=== PATIENT | male | born 1985 ===

== ENCOUNTER 2018-11-16 11:52 | Emergency (ER) | payer OTHER ==
[2018-11-16 13:11] VITALS: RESP 16; TEMP 98.7
--- NOTE | 2018-11-16 13:13 | ED PDOC ---
Arrival/HPI - General Time Seen by Provider: 11/16/18 12:33 Historian: Patient - History of Present Illness Narrative History of Present Illness (Text): 11/16/18 13:10 A 33 year old male presents to the emergency department for further evaluation of nausea. Patient notes that the symptoms began 3 days ago overnight after a BBQ. He notes that he is able to tolerate PO. Patient's partner and 2 children with similar symptoms. He denies fevers, chills, headache, dizziness, chest pain, shortness of breath, dyspnea on exertion, cough, abdominal pain, vomiting, diarrhea, back pain, neck pain, urinary/bowel changes, or any other complaint. Time/Duration: Other (3 days) Symptom Onset: Sudden Symptom Course: Unchanged Activities at Onset: Rest, Light Context: Home Associated Symptoms (Text): 11/16/18 13:48 Nausea but no vomiting or diarrhea. Several other family members have a similar illness. He does not appear ill or dehydrated. No work-up is necessary. He is able to tolerate p.o. with no difficulty. Past Medical History - Provider Review Nursing Documentation Reviewed: Yes Family/Social History - Physician Review Nursing Documentation Reviewed: Yes Family/Social History: No Known Family HX Smoking Status: Never Smoked Hx Alcohol Use: No Hx Substance Use: No Allergies/Home Meds Allergies/Adverse Reactions: Allergies No Known Allergies Allergy (Verified 11/16/18 13:05) Review of Systems - Physician Review All systems were reviewed & negative as marked: Yes - Review of Systems Constitutional: absent: Fevers Respiratory: absent: SOB, Cough Cardiovascular: absent: Chest Pain, VAZQUEZ Gastrointestinal: Nausea. absent: Abdominal Pain, Diarrhea, Vomiting Genitourinary Male: absent: Urinary Output Changes Musculoskeletal: absent: Back Pain, Neck Pain Neurological: absent: Headache, Dizziness Physical Exam Vital Signs Reviewed: Yes Temperature: Afebrile Blood Pressure: Normal Pulse: Regular Respiratory Rate: Normal Appearance: Positive for: Well-Appearing, Non-Toxic, Comfortable Pain Distress: None Mental Status: Positive for: Alert and Oriented X 3 - Systems Exam Head: Present: Atraumatic, Normocephalic Pupils: Present: PERRL Extroacular Muscles: Present: EOMI Conjunctiva: Present: Normal Mouth: Present: Moist Mucous Membranes Pharnyx: No: ERYTHEMA, EXUDATE, TONSILS ENLARGED Neck: Present: Normal Range of Motion Respiratory/Chest: Present: Clear to Auscultation, Good Air Exchange. No: Respiratory Distress, Accessory Muscle Use Cardiovascular: Present: Regular Rate and Rhythm, Normal S1, S2. No: Murmurs Abdomen: No: Tenderness, Distention, Peritoneal Signs Back: Present: Normal Inspection Upper Extremity: Present: Normal Inspection. No: Cyanosis, Edema Lower Extremity: Present: Normal Inspection. No: Edema Neurological: Present: GCS=15, CN II-XII Intact, Speech Normal Skin: Present: Warm, Dry, Normal Color. No: Rashes Psychiatric: Present: Alert, Oriented x 3, Normal Insight, Normal Concentration Medical Decision Making ED Course and Treatment: 11/16/18 13:12 Impression: A 33 year old male presents to the emergency department with a complaint of nausea s/p . Plan: -- Reassess and disposition Prior Visits: Notes and results from previous visits were reviewed. Progress Notes: 11/16/18 14:56 Patient is able to tolerate p.o. with no vomiting or diarrhea. Discharged home accompanied by family to follow-up with PMD. Follow-up in ER as needed. - Scribe Statement The provider has reviewed the documentation as recorded by the Norahibe Dorothea Miller Provider Scribe Attestation: All medical record entries made by the Scribe were at my direction and personally dictated by me. I have reviewed the chart and agree that the record accurately reflects my personal performance of the history, physical exam, medical decision making, and the department course for this patient. I have also personally directed, reviewed, and agree with the discharge instructions and disposition. Disposition/Present on Arrival - Present on Arrival Any Indicators Present on Arrival: No History of DVT/PE: No History of Uncontrolled Diabetes: No Urinary Catheter: No History of Decub. Ulcer: No - Disposition Have Diagnosis and Disposition been Completed?: Yes Diagnosis: Nausea, Gastroenteritis Disposition: HOME/ ROUTINE Disposition Time: 14:57 Patient Plan: Discharge Condition: GOOD Discharge Instructions (ExitCare): Gastroenteritis (ED) Additional Instructions: Diet as tolerated. Follow-up with PMD. Follow-up in ER as needed. Prescriptions: Ondansetron ODT [Zofran ODT] 4 mg PO Q6 #20 odt Forms: WORK NOTE
[2018-11-16 15:35] VITALS: BP 130/75; PULSE 72; O2SAT 99
== END 2018-11-16 15:34 | disposition home or self-care (01) ==
LOC: ED 11:52
DX: K52.9 Noninfective gastroenteritis and colitis, unspecified (principal)